=== PATIENT | female | born 1995 | race African-American/Black ===

== ENCOUNTER 2017-08-31 12:17 | Emergency (ER) | payer SELFPAY ==
[2017-08-31] MEDS ORDERED: Acetaminophen 325 MG TAB ONE (14:16)
== END 2017-08-31 15:27 | disposition home or self-care (01) ==
LOC: ERS 12:17
DX: R51 Headache (principal); R07.89 Other chest pain; V89.2XXA Person injured in unspecified motor-vehicle accident, traffic, initial encounter
CPT/HCPCS: 99283

== ENCOUNTER 2018-02-16 18:03 | Emergency (ER) | payer SELFPAY ==
[2018-02-16 18:50] LABS: #Basophils 0.1 thou/uL (0.0-0.2); #Eosinphils 0.2 thou/uL (0.0-0.7); #Lymphocytes 3.4 thou/uL (1.20-3.40); #Monocytes 0.9 thou/uL (0.11-0.59); #Neutrophils 7.5 thou/uL (1.40-6.50); %Basophils 0.9 % (0.0-1.0); %Eosinophils 1.4 % (0.0-10.0); %Lymphocytes 28.1 % (21.0-51.0); %Monocytes 7.3 % (0.0-10.0); %Neutrophils 62.4 % (42.0-75.0); Hemoglobin 11.9 g/dL (12.0-16.0); Mean Corpuscular HGB CONC 32.5 g/dL (32.0-36.0); Mean Corpuscular Hemoglobin 26.8 pg (27.0-31.0); Mean Corpuscular Volume 82.4 fl (81.0-99.0); Mean Platelet Volume 6.5 fL (7.4-10.4); Platelet Count 332 thou/uL (130-400); RBC Distribution Width 12.9 % (11.5-14.5); Red Blood Cell (RBC) Count 4.44 mill/uL (4.20-5.40)
[2018-02-16 20:04] LABS: Bilirubin Negative (Negative); Blood, Urine Small (Negative); Clarity Cloudy (Clear); Glucose, Urine (Dipstick) Negative (Negative); Leukocyte Negative (Negative); Nitrite Negative (Negative); Protein, Urine (Dipstick) Negative (Neg-Trace)
[2018-02-16 20:08] LABS: Bacteria/HPF 1+ HPF (None Seen)
--- NOTE | 2018-02-16 20:21 | ULT ---
PELVIC ULTRASOUND: 02/16/18 COMPARISON: None. HISTORY: Positive home test with spotting. TECHNIQUE: Multiplanar jacksno scale and color doppler images were obtained in a transabdominal and transvaginal pe ic ultrasound. Spectral analysis of the doppler waveforms of the ovaries were performed. FINDINGS: There appears to be a gestational sac within the uterus which is irregular in appearance. There appea rs to be a yolk sac within the gestational sac without a pole seen at this time. The mean sac d iameter is 1.42 cm which would estimate gestational age of 6 weeks, 2 days. However, this is irregula r in appearance and may be abnormal. No free fluid is seen in the pelvis. Both ovaries are normal in size and appearance and demonstrate n ormal internal flow. IMPRESSION: There is an irregular gestational sac within the uterus. This could represent a very early . This could also represent an abnormal ongoing spontaneous . Correlate with HCG lev els and a repeat ultrasound may be necessary. POS: SHAYAN
[2018-02-17 20:55] LABS: Chlamydia by PCR Not Detected (NotDetected); GC by PCR Not Detected (NotDetected)
== END 2018-02-16 20:16 | disposition home or self-care (01) ==
LOC: SCSER 18:03
DX: O20.0 Threatened abortion (principal); Z3A.01 Less than 8 weeks gestation of pregnancy
CPT/HCPCS: 36415; 76856; 81003; 81015; 84702; 85025; 86900; 86901; 87086; 87480; 87491; 87510; 87591; 87660